=== PATIENT | female | born 1945 | race Caucasian/White ===

== ENCOUNTER 2017-12-03 16:45 | Emergency (ER) | payer OTHER ==
[~2017-12-03] VITALS: Ht 157.5 cm; Wt 46.3 kg
--- NOTE | ~2017-12-03 | EKG ---
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: ELVIEVIDAL : 1945 Requested By: Sha Jones Order Number: [id number] MD: Saman Bernal Measurements Intervals [place] Rate: 72 P: 54 OH: 154 QRS: 47 QRSD: 85 T: 91 QT: 463 QTc: 507 Interpretive Statements Sinus rhythm Probable left atrial enlargement Probable LVH with secondary repol abnrm Prolonged QT interval Compared to ECG 05/20/2006 01:28:38 Repolarization abnormality is now present Electronically Signed On 12-04-2017 8:42:17 CDT by Saman Bernal [email or web address] <ELECTRONICALLY SIGNED> By: Saman Bernal MD, [facility] 12/04/17 0842 1706 05 Saman Bernal MD, [facility] /EPI
[2017-12-03 17:23] LABS: ABSOLUTE NEUTROPHILS 8.6 thou/uL (1.4-8.2); BASOPHILS 0.6 % (0.0-2.0); EOSINOPHILS 0.5 % (0.0-3.0); HEMATOCRIT 40.3 % (37.0-47.0); HEMOGLOBIN 13.5 gm/dL (12.0-15.0); LYMPHOCYTES 7.2 % (24.0-44.0); MCHC 33.6 g/dL (28.0-37.0); MCV 92.5 fL (80.0-100.0); MONOCYTES 6.4 % (1.0-8.0); PLATELET COUNT 269 thou/uL (150-400); POLYS 85.3 % (36.0-66.0); RBC 4.36 mil/uL (4.20-5.00); RDW 13.2 % (10.5-14.5); WBC 10.1 thou/uL (4.0-11.0)
[2017-12-03 17:31] LABS: ANION GAP 8 mmol/L (7-16); BUN 32 mg/dL (7-18); CALCIUM 9.6 mg/dL (8.5-10.1); CHLORIDE 100 mmol/L (98-107); CO2 27 mmol/L (21-32); CREATININE 1.9 mg/dL (0.6-1.0); GLUCOSE 178 mg/dL (74-106); POTASSIUM 3.8 mmol/L (3.5-5.1); SODIUM 135 mmol/L (136-145)
[2017-12-03 17:37] LABS: ALBUMIN 3.6 g/dL (3.4-5.0); MAGNESIUM 1.7 mg/dL (1.8-2.4); SGOT 18 U/L (15-37); SGPT 19 U/L (30-65); TOTAL BILIRUBIN 0.5 mg/dL (<0.1-1.0); TOTAL PROTEIN 7.4 g/dL (6.4-8.2); TROPONIN-I <0.06 ng/mL (<0.06)
[2017-12-03 19:00] VITALS: BP 133/52
== END 2017-12-03 19:00 | disposition home or self-care (01) ==
LOC: ER 16:45
PROVIDERS: Emergency Medicine
DX: I12.9 Hypertensive chronic kidney disease with stage 1 through stage 4 chronic kidney disease, or unspecified chronic kidney disease (principal); N18.9 Chronic kidney disease, unspecified; I95.9 Hypotension, unspecified; E86.0 Dehydration; J44.9 Chronic obstructive pulmonary disease, unspecified; I63.9 Cerebral infarction, unspecified; Z86.73 Personal history of transient ischemic attack (TIA), and cerebral infarction without residual deficits; Z85.118 Personal history of other malignant neoplasm of bronchus and lung; Z90.2 Acquired absence of lung [part of]; F32.9 Major depressive disorder, single episode, unspecified; Z88.5 Allergy status to narcotic agent; Z88.0 Allergy status to penicillin

== ENCOUNTER 2018-10-05 20:34 | Inpatient (IN) | payer OTHER ==
[~2018-10-05] VITALS: Ht 170.2 cm; Wt 81.6 kg
[2018-10-05 20:35] VITALS: BP 181/99
[2018-10-05] MEDS ORDERED: LOPRESSOR25 (20:43)
[2018-10-05] MEDS ORDERED: LOPRESSOR100 M1 PO (20:55)
[2018-10-05 21:16] LABS: URINE BILIRUBIN NEGATIVE (Negative); URINE BLOOD NEGATIVE (Negative); URINE CLARITY CLEAR; URINE COLOR YELLOW; URINE GLUCOSE-RANDOM* NEGATIVE (Negative); URINE KETONES NEGATIVE (Negative); URINE LEUKOCYTES NEGATIVE (Negative); URINE NITRITE NEGATIVE (Negative); URINE PROTEIN (DIPSTICK) 2+ (Negative); URINE SPECIFIC GRAVITY 1.025 (1.005-1.035); URINE UROBILINOGEN 0.2 E.U./dl (0.2-1.0)
[2018-10-05 21:24] LABS: AMP/METHAMP Negative (Negative); BARBITURATES Negative (Negative); BENZODIAZEPINES Negative (Negative); COCAINE Negative (Negative); METHADONE Negative (Negative); OPIATES Negative (Negative); PCP Negative (Negative)
[2018-10-05 21:24] LABS: ANION GAP 8 mmol/L (7-16); BUN 24 mg/dL (7-18); CALCIUM 9.6 mg/dL (8.5-10.1); CHLORIDE 103 mmol/L (98-107); CO2 32 mmol/L (21-32); CREATININE 1.5 mg/dL (0.6-1.0); GLUCOSE 110 mg/dL (74-106); POTASSIUM 3.5 mmol/L (3.5-5.1); SODIUM 143 mmol/L (136-145)
[2018-10-05 21:26] LABS: ABSOLUTE NEUTROPHILS 5.2 thou/uL (1.4-8.2); EOSINOPHILS 4.2 % (0.0-3.0); HEMATOCRIT 40.9 % (37.0-47.0); HEMOGLOBIN 13.8 gm/dL (12.0-15.0); LYMPHOCYTES 19.4 % (24.0-44.0); MCHC 33.9 g/dL (28.0-37.0); MCV 91.5 fL (80.0-100.0); MONOCYTES 7.9 % (1.0-8.0); PLATELET COUNT 267 thou/uL (150-400); POLYS 67.5 % (36.0-66.0); RBC 4.47 mil/uL (4.20-5.00); RDW 13.1 % (10.5-14.5); WBC 7.7 thou/uL (4.0-11.0)
[2018-10-05 21:26] LABS: CASTS None Seen /LPF (None Seen); CRYSTALS None Seen /LPF (None Seen); SQUAMOUS None Seen /LPF (0-3); URINE WBC None Seen /HPF (0-5)
[2018-10-05 21:27] LABS: BACTERIA 1-9 Few /HPF (None Seen); URINE RBC None Seen /HPF (0-2)
[2018-10-05 21:34] LABS: TROPONIN-I <0.06 ng/mL (<0.06)
[2018-10-05 23:39] VITALS: BP 146/71
[2018-10-06 03:37] VITALS: BP 157/87
[2018-10-06 06:01] LABS: CREATININE 1.3 mg/dL (0.6-1.0); POTASSIUM 3.4 mmol/L (3.5-5.1)
[2018-10-06 07:22] VITALS: BP 159/85
--- NOTE | 2018-10-06 09:17 | EKG ---
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: SAVANNA : 1945 Requested By: Semaj Juarez Order Number: [id number] MD: Saman Bernal Measurements Intervals [place] Rate: 63 P: 46 IN: 176 QRS: 23 QRSD: 89 T: 191 QT: 410 QTc: 420 Interpretive Statements Sinus rhythm Abnormal R-wave progression, early transition LVH with secondary repolarization abnormality Baseline wander in lead(s) II Compared to ECG 12/03/2017 17:06:31 Prolonged QT interval no longer present Electronically Signed On 10-06-2018 9:17:26 CDT by Saman Bernal [email or web address] ��������������������������������������������� <ELECTRONICALLY SIGNED> ���������������������������������������� By: Saman Bernal MD, FACC ��������������������������������������������� 10/06/18 0917 45 45 Saman Bernal MD, [facility] /EPI
[2018-10-06] MEDS ORDERED: ASPIR 8181 MG PO (10:55)
[2018-10-06] MEDS ORDERED: LOPRESSOR100 M1 PO (10:55)
[2018-10-06] MEDS ORDERED: NORVASC10 MG PO (10:55)
[2018-10-06 13:42] VITALS: BP 159/85
--- NOTE | 2018-10-06 15:16 | NUR ---
PT ADMITTED RELATED TO AMS AND DEHYDRATION. CM REVIEWED CHART AND SPOKE WITH CARE TEAM. CM MET WITH PT AT BEDSIDE THIS DAY. PT IS A&0 X4. CM ROLE INTRODUCED. PT INDICATED SHE HAD BEEN LIVING IN AN APARTMENT WITH HER DTR VISUAL COORDINATOR. PT INDICATED THERE ARE 2 STEPS TO ENTER AND NO STEPS INSIDE. 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 PT INDICATED NO DME OR HH HX. CARE TEAM INDICATED THAT PT IS MEDICALLY STABLE TO DC HOME THIS DAY WITH NO NEEDS. NO OTHER CM INTERVENTION INDICATED. CASE CLOSED.
== END 2018-10-06 15:10 | disposition home or self-care (01) | DRG 682 ==
LOC: ER 20:34 → 4W 22:10 → EROBS 22:10 → 4W 23:41 → ENTRNSPT 10-06 14:24 → 4W 10-06 15:10
PROVIDERS: Nurse Practitioner; Nurse Practitioner Family; ADMIT Hospitalist
DX: N17.9 Acute kidney failure, unspecified (principal); G93.41 Metabolic encephalopathy; I10 Essential (primary) hypertension; F03.90 Unspecified dementia, unspecified severity, without behavioral disturbance, psychotic disturbance, mood disturbance, and anxiety; F32.9 Major depressive disorder, single episode, unspecified; E86.0 Dehydration; N32.81 Overactive bladder; Z86.73 Personal history of transient ischemic attack (TIA), and cerebral infarction without residual deficits; Z85.118 Personal history of other malignant neoplasm of bronchus and lung; Z87.442 Personal history of urinary calculi; Z79.899 Other long term (current) drug therapy; Z88.0 Allergy status to penicillin; Z88.6 Allergy status to analgesic agent; Z87.891 Personal history of nicotine dependence
CPT/HCPCS: 10045

== ENCOUNTER 2020-02-18 17:17 | Inpatient (IN) | payer OTHER ==
[~2020-02-18] VITALS: Ht 170.2 cm; Wt 127.0 kg
--- NOTE | ~2020-02-18 | EMS ---
[facility] [address] [place] [address] EMS Patient Care Report Name: EMILY BURDICK Room #: REG Jose Antonio#: [id number] Admission: 02/18/20 Attend Phys: Discharge: Date of : 49 Report #: [id number] THIS REPORT FOR: //name// Report Transmitted: 02/18/2020 18:09 EMS Care Summary [place], [place]/[facility] Incident [id number] @ 02/18/2020 16:37 Incident Location [address] [place] [id number] Patient EMILY BURDICK Female, 74 Years 1945 Patient Address Patient History Hypertension (HTN),Lung Cancer, Patient Allergies Penicillin allergy, Patient Medications Unknown, Chief Complaint N/V Disposition Transported No Lights/[place] Reason Breathing Problem Transported To [facility] Narrative RESPONDED TO BREATHING PROBLEMS AT APARTMENT. UPON ARRIVAL PT FOUND LAYING ON COUCH ALERT AND ORIENTED TO BASELINE. FF/MEDIC SLEAD ON SCENE REPORTS PT HAS BEEN VOMITING ALL DAY TODAY AND DAUGHTER CALLED BECAUSE SHE THOUGHT HER MOTHER MIGHT HAVE ASPIRATED. WHEEZING NOTED IN LUNGS WITH HX OF LUNG CANCER. PT DOES NOT APPEAR IN RESPIRATPRY DISTRESS. PT DOES APPEAR WEAK AND PALE WITH [facility] [address] [place] [address] EMS Patient Care Report Name: EMILY BURDICK Room #: REG MISA Brady#: [id number] Admission: 02/18/20 Attend Phys: Discharge: Date of : 49 Report #: [id number] HYPERTENTION NOTED. PT CARRIED VIA RYAN [employer] TECHNICAL ARCHITECT DOWN STAIRS. PT SAT UP ON COT AND VITALS OBTAINED. UPON ARRIVAL AT [facility] PT VOMITED INTO BUCKET AND VERY DARK EMESIS NOTED. PT TEAM LIFTED TO BED AND HANDRAILS UP. REPORT GIVEN TO NURSE. Initial Vitals @17:09P: 51,R: 16,BP: 220/120,Pain: 0/10,GCS: 15,Glucose: 144,SpO2: 93,Revised Trauma: 12, @17:28P: 56,R: 18,BP: 200/102,Pain: 0/10,GCS: 15,SpO2: 94,Revised Trauma: 12, Assessments @16:49MENTAL:Person Oriented,Event Oriented,Place Oriented,SKIN:Pale,HEENT:Head/Face: No Abnormalities,Neck/Airway: No Abnormalities,LUNG SOUNDS:General: Nausea,General: Vomiting,ABDOMEN:General: Nausea,General: Vomiting,PELVIS//GI:No Abnormalities,EXTREMITIES:Left Arm: Weakness,Right Arm: Weakness,Left Leg: Weakness,Right Leg: Weakness,PULSE:NEURO:@16:55MENTAL:Person Oriented,Event Oriented,Place Oriented,SKIN:Pale,HEENT:Head/Face: No Abnormalities,Eyes: No Abnormalities,Neck/Airway: No Abnormalities,LUNG SOUNDS:General: Vomiting,Left Upper: No Abnormalities,Right Upper: No Abnormalities,Left Lower: No Abnormalities,Right Lower: No Abnormalities,ABDOMEN:General: Vomiting,Left Upper: No Abnormalities,Right Upper: No Abnormalities,Left Lower: No Abnormalities,Right Lower: No Abnormalities,PELVIS//GI:No Abnormalities,EXTREMITIES:Left Arm: Weakness,Right Arm: Weakness,Left Leg: Weakness,Right Leg: Weakness,PULSE:NEURO:No Abnormalities, Impression Generalized Weakness Procedures @16:49ALS AssessmentResponse: UnchangedSucceeded Timeline 16:33,Call Received 16:33,Dispatch Notified 16:37,Dispatched 16:38,En Route 16:45,On Scene 16:48,At Patient 16:49,ALS Assessment,Response: UnchangedSucceeded, 17:02,Depart Scene 17:09,BP: 220/120 M,PULSE: 51,RR: 16 R,SPO2: 93 Ox,ETCO2: ,B,PAIN: 0,GCS: 15, 17:09,At Destination 17:28,BP: 200/102 M,PULSE: 56,RR: 18 R,SPO2: 94 Ox,ETCO2: ,BG: ,PAIN: 0,GCS: 15, 17:31,Call Closed [facility] [address] [place] [address] EMS Patient Care Report Name: EMILY BURDICK Room #: REG [facility].#: [id number] Admission: 02/18/20 Attend Phys: Discharge: Date of : 49 Report #: [id number] Disclaimer v1.1 Copyright 2020 [employer] This EMS Care Summary contains data elements from the applicable legal record (which may be displayed differently). It is designed to provide pertinent information for the following purposes: continuity of care, clinical quality, and state data reporting. The complete legal record is available to ED staff and administrators of the receiving hospital in [facility]'s Patient Tracker. All data is provided "as is."
[~2020-02-18 17:17] MED LIST: ASPIR 8181 MG PO; LOPRESSOR100 M1 PO; LOPRESSOR25; NORVASC10 MG PO
[2020-02-18 17:18] VITALS: BP 212/114
[2020-02-18 17:54] LABS: BASOPHILS 0.5 % (0.0-2.0); EOSINOPHILS 1.1 % (0.0-3.0); HEMATOCRIT 41.6 % (37.0-47.0); HEMOGLOBIN 13.6 gm/dL (12.0-15.0); LYMPHOCYTES 6.1 % (24.0-44.0); MCH 30.2 pg (26.0-34.0); MCHC 32.6 g/dL (28.0-37.0); MCV 92.6 fL (80.0-100.0); MONOCYTES 4.3 % (1.0-8.0); PLATELET COUNT 205 thou/uL (150-400); RBC 4.49 mil/uL (4.20-5.00); RDW 13.3 % (10.5-14.5); WBC 13.6 thou/uL (4.0-11.0)
[2020-02-18 18:02] LABS: CALCIUM 9.5 mg/dL (8.5-10.1); CREATININE 1.5 mg/dL (0.6-1.0); POTASSIUM 3.4 mmol/L (3.5-5.1)
[2020-02-18 18:08] LABS: ALBUMIN 4.1 g/dL (3.4-5.0); TOTAL BILIRUBIN 0.5 mg/dL (0.2-1.0); TOTAL PROTEIN 8.1 g/dL (6.4-8.2)
[2020-02-18 18:13] LABS: APTT 29.1 Seconds (24.5-32.8); PROTIME 10.3 Seconds (9.3-11.4)
[2020-02-18] MEDS ORDERED: TYLENOL325 M1 PO (18:47)
[2020-02-18] MEDS ORDERED: HYDROCODON-ACE1 EAC8 PO (18:47)
[2020-02-18 20:47] VITALS: BP 215/92
[2020-02-18 22:54] VITALS: BP 198/108
[2020-02-18 23:15] VITALS: BP 169/104
[2020-02-18 23:30] VITALS: BP 205/107
[2020-02-19] VITALS (46 sets, daily range): BP systolic 69–149; BP diastolic 43–89
[2020-02-19 02:22] LABS: HEMATOCRIT 41.7 % (37.0-47.0); HEMOGLOBIN 13.8 gm/dL (12.0-15.0); MCH 30.5 pg (26.0-34.0); MCV 92.3 fL (80.0-100.0); RBC 4.52 mil/uL (4.20-5.00); RDW 13.3 % (10.5-14.5); WBC 10.3 thou/uL (4.0-11.0)
[2020-02-19 03:55] LABS: BE(vivo) -1.5 mmol/L (-2 to +3); HCO3 23.2 mmol/L (22.0-26.0); PCO2 39.3 mmHg (35.0-45.0); PO2 122.5 mmHg (80.0-100.0); pH 7.389 (7.360-7.450); sO2 98.4 % (92.0-98.0)
--- NOTE | 2020-02-19 04:28 | NUR ---
ASSUMED CARE OF PATIENT AT 2300 FROM ER. ON CARDENE GTT. TITRATED OFF. TREATED WITH HYDRALAZINE, GOOD RESULTS. AT 0300 O2 SATS DROPPED WALT 77%. NO OBVIOUS DISTRESS. MACHINE CHECKED 3 TIMES BY 3 NURSES. INCREASED O2 TO 5. NOT IPROVING, INCREASED TO 10L. PSYCHOLOGICAL OPERATIONS SPECIALIST CALLED. ORDERS OBTAINED FOR STAT CXR, ABG, NONREBREATHER. RESULTS CALLED. DR TORIBIO CONSULTED. PATIENT HAS NOT BEEN SWABBED FOR COVID. ORDERS RECIEVED TO TRANSFER TO ICU FOR RESPIRATORY FAILURE AND COVID RULE OUT. WILL NOTIFY FAMILY.
--- NOTE | 2020-02-19 05:30 | NUR ---
REPORT RECEIVED FROM MEGHANA HARTLEY ON 2N. PT REQUIRING INCREASED OXYGEN NEEDS AND TRANSFER ORDERS TO ICU PER DR. TORIBIO. PT ASSESSED PER ICU PROTOCOL. ATTACHED TO ICU MONITOR. PT ARRIVED ON NON-REBREATHER AT 15L SATING 100%. PT WITH IVF AND PROTONIX GTT INFUSING. PT BP ON ARRIVAL 187/78, CARDENE GTT RESTARTED ON PT. REFER TO EMAR. PATIENT A&OX3. NO C/O N/V, PAIN. PT REQUESTING TO SLEEP. PATIENT NOT PROGRESSING TOWARDS GOAL INDICATED BY INCREASED OXYGEN.
[2020-02-19 06:49] LABS: CREATININE 1.3 mg/dL (0.6-1.0); MAGNESIUM 1.8 mg/dL (1.8-2.4); POTASSIUM 3.1 mmol/L (3.5-5.1)
[2020-02-19 09:57] LABS: BE(vivo) 0.5 mmol/L (-2 to +3); HCO3 25.6 mmol/L (22.0-26.0); PCO2 42.4 mmHg (35.0-45.0); pH 7.398 (7.360-7.450); sO2 99.7 % (92.0-98.0)
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
[2020-02-20] VITALS (42 sets, daily range): BP systolic 78–214; BP diastolic 41–173
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
--- NOTE | 2020-02-20 02:33 | NUR ---
This RN spoke to patients daughter, Suzie, at 0230 this morning again to update her. Patient had a lot of questions regarding the EGD to be done tomorrow. I told her I had limited knowledge on the procedure and that a doctor could answer more questions for her tomorrow before the procedure. Daughter also asked very rude questions regarding her mother, she inquired "Has she ate today, she can be real b when she's hangry, I hope she's not being a B* to you". I assured her that her mother is very pleasent, stable, and unbothered.
--- NOTE | 2020-02-20 06:19 | NUR ---
Patient had a good night, the only issues were fluactuating blood pressures. It seemed when the patient was in a deep sleep the patients blood pressure would drop and the MAP would be in the low 60's. Upon arousing patients blood prssure rises to an appropriate level. Afebrile throughout night, in sinus rhythm, and remains on room air satting at 96%. Plan for an EGD at 0830 today, consent still needs to be obtained and signed.
--- NOTE | 2020-02-20 08:17 | NUR ---
ASSUMED CARE AT 0700, ASSESSMENT AND VITAL SIGNS COMPLETED PER ICU PROTOCOL. PT TAKEN FOR EGD AT 0800 BY RNX2 FROM PROCEDURE AREA. PT ON RA DURING TRANSPORT.
--- NOTE | 2020-02-20 12:46 | NUR ---
ASSUMED CARE OF PT AT 12PM. PT A TRANSFER FROM ICU. PT ALERT AND ORIENTED TIMES THREE, WITH PERIODS OF CONFUSION. VSS, IVF INFUSING PER ORDER. PT DENIES PAIN/SOA ON TRANSFER ASSESSMENT. PT IS TOLERATING CLEAR LIQUID DIET. PT UP TO BSC WITH ASSIST OF ONE. PT PROGRESSING TOWRADS POC GOALS.
--- NOTE | 2020-02-21 04:14 | NUR ---
ASSUMED CARE OF PT AT 1900HES. PT AOX3-4 AND LETS NEEDS BE KNOWN. FALL PRECAUTION IN PLACE. CONDOM CATH IN PLACE AND IS PATIENT. PT RUNNING SR-ST ON TELE. PT WAS HYPERTENSIVE THIS SHIFT, PRN FIVEN. PT REPORTED PAIN, PRN GIVEN. PT SCORES CIWA 3-4. PT WAS ABLE TO GET COMFORTABLE AND SLEEP PART OF THE SHIFT. WILL CONTINUE TO MONITOR.
--- NOTE | 2020-02-21 04:57 | NUR ---
ASSUMED CARE OF PT AT 1900HRS. PT IS AOX3 WITH SOME CONFUSION. FALL PRECAUTION IN PLACE. PT REPORTED SOME PAIN. NO EMISIS EPISODE NOTED. PT DENIED NAUSEA OR SOA. PT HAS APPETITE AND IS REQUESTING SOLIF FOODS. PT WAS COMFORTABLE BUT SLEPT VERY LITTLE THIS SHIFT. VSS AND NO S/S OF ACUTE DISTRESS. WILL CONTINUE TO MONITOR.
[2020-02-21] MEDS ORDERED: PROTONIX 20 MG20 M1 PO (11:33)
--- NOTE | 2020-02-21 15:00 | NUR ---
PT ADMITTED RELATED TO NAUSEA, VOMITING, UGI BLEED, WEAKNESS. CM REVIEWED CHART AND SPOKE WITH CARE TEAM. CM CALLED AND SPOKE WITH PT THIS AM. PT APPEARED TO BE A&O X4. CM ROLE INTRODUCED. PT INDICATED SHE LIVES IN AN APARTMENT WITH HER DTR WITH 20 STEPS TO ENTER AND NONE INSIDE. 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 PT HAD EGD YESTERDAY AND WAS ASSESSED BY ST THIS DAY ON REG DIET THIN LIQUIDS. CARE TEAM INDICATED PT IS MEDICALLY STABLE TO DC HOME THIS DAY. PT INDICATED HER DTR WOULD PROVIDE TRANSPORT HOME. PT'S DTR TO PICK PT UP AT 1400. NO OTHER CM INTERVENTION INDICATED. CASE CLOSED.
[2020-02-21 17:18] VITALS: BP 124/86
--- NOTE | 2020-02-21 18:45 | NUR ---
Assumed pt care at 7am.Assessment completed.vss.Pt wanted regular meal for breakfast but still on clear liq.Dr Martin notified and order noted.Speech eval done prior to feeding pt at lunch.Dr Martin rouned on pt later this evening and dc order noted.Port a-cath heparinized prior to deactivated.Dc summary compile and reviewed with pt.At 1835,pt dc home with dtr per wc.
== END 2020-02-21 18:42 | disposition home or self-care (01) | DRG 871 ==
LOC: ER 17:17 → EROBS 19:25 → 4W 19:25 → 2N 22:55 → ICU 02-19 05:51 → 4W 02-20 12:18
PROVIDERS: Emergency Medicine; Nurse Practitioner Family; ADMIT Hospitalist; ATTEND Hospitalist
PROC: 0DJ08ZZ Inspection of Upper Intestinal Tract, Via Natural or Artificial Opening Endoscopic (ICD-10-PCS; principal; 2020-02-20)
DX: A41.9 Sepsis, unspecified organism (principal); J69.0 Pneumonitis due to inhalation of food and vomit; J96.01 Acute respiratory failure with hypoxia; K92.0 Hematemesis; E87.0 Hyperosmolality and hypernatremia; I16.1 Hypertensive emergency; I16.0 Hypertensive urgency; F32.9 Major depressive disorder, single episode, unspecified; F03.90 Unspecified dementia, unspecified severity, without behavioral disturbance, psychotic disturbance, mood disturbance, and anxiety; R53.1 Weakness; I12.9 Hypertensive chronic kidney disease with stage 1 through stage 4 chronic kidney disease, or unspecified chronic kidney disease; N18.9 Chronic kidney disease, unspecified; F41.9 Anxiety disorder, unspecified; D72.829 Elevated white blood cell count, unspecified; Z20.828 Contact with and (suspected) exposure to other viral communicable diseases; Z87.891 Personal history of nicotine dependence; Z88.5 Allergy status to narcotic agent; Z88.0 Allergy status to penicillin; Z86.73 Personal history of transient ischemic attack (TIA), and cerebral infarction without residual deficits; Z85.118 Personal history of other malignant neoplasm of bronchus and lung; Z79.82 Long term (current) use of aspirin; Z79.899 Other long term (current) drug therapy
CPT/HCPCS: 10045; 10078; 10081; 62110; 62900